=== PATIENT | male | born 1980 | race African-American/Black ===

== ENCOUNTER 2021-03-18 10:50 | Emergency (ER) | payer OTHER ==
[~2021-03-18] VITALS: Ht 182.9 cm; Wt 118.0 kg
[2021-03-18] MEDS ORDERED: AMOX-494 MT (12:50)
[2021-03-18 13:18] VITALS: BP 131/87
== END 2021-03-18 13:19 | disposition home or self-care (01) ==
LOC: ER 13:12
DX: J02.0 Streptococcal pharyngitis (principal)
CPT/HCPCS: 99283